=== PATIENT | male | born 1965 | race Caucasian/White ===

== ENCOUNTER → 2017-07-01 | Outpatient (CLI) | payer OTHER | END | disposition disaster alternative care site (69) | LOC: GLAB 06-16 12:00 → GRAD 06-16 14:00 → GLAB 06-17 12:00 → GRAD 13:56 → GLAB 14:00 → GRAD 14:00 | PROVIDERS: Orthopaedic Surgery | DX: Z88.2 Allergy status to sulfonamides (principal); R22.9 Localized swelling, mass and lump, unspecified; M75.121 Complete rotator cuff tear or rupture of right shoulder, not specified as traumatic; M75.91 Shoulder lesion, unspecified, right shoulder; M53.2X7 Spinal instabilities, lumbosacral region | CPT/HCPCS: A9577 ==